=== PATIENT | male | born 1950 | race Two or more races ===

== ENCOUNTER 2024-11-18 07:02 | Inpatient (IN) | payer OTHER ==
[~2024-11-18] VITALS: Ht 172.7 cm; Wt 99.2 kg
[2024-11-18] VITALS (14 sets, daily range): BP systolic 114–124; BP diastolic 64–79; PULSE 80–100; RESP 15–20; TEMP 97.2–97.6; O2SAT 91–100
[~2024-11-18 07:02] MED LIST: ALBUAER3 IN; AMLO1TAB23 PO; CEL100T PO; COLC1CAP PO; FLUT1AER17 IN; GABA-1250 PO; METF-370 PO; METH-1182 PO; OME40GT PO; OMEG-20 PO; SIMV10TA20 PO; TAMS0.4C39 PO
[2024-11-18] MEDS ORDERED: PROPOFOL 10 MG/ML 20 ML IV ONE ×2 (08:01→10:09)
[2024-11-18] MEDS ORDERED: KETAMINE 50mg/ML 1ml syringe ONE (08:01)
[2024-11-18] MEDS ORDERED: LIDOCAINE 1% INJ PF 5ML AMP ONE (08:01)
[2024-11-18] MEDS ORDERED: GLYCOPYRROLATE 0.2 MG/ML 1ML VIAL ONE (08:01)
[2024-11-18] MEDS ORDERED: KETOROLAC TROMETH 30 MG/ML 1ML VIAL ONE ×2 (08:01→08:53)
[2024-11-18] MEDS ORDERED: ONDANSETRON HCL 4 MG/2 ML VIAL ONE (08:01)
[2024-11-18] MEDS: GABAPENTIN 300 MG CAP PO ONE (08:47)
[2024-11-18] MEDS: ACETAMINOPHEN IV 1000 MG/100ML (10MG/ML) IV ONE (08:47)
[2024-11-18] MEDS: CELECOXIB 100 MG CAP PO ONE (08:47)
[2024-11-18] MEDS ORDERED: MORPHINE SULF PF 5 MG/10 ML VIAL ONE (08:53)
[2024-11-18] MEDS: TRANEXAMIC ACID 20 ML ONE (09:00)
[2024-11-18] MEDS: CEFEPIME 1GM/50ML 50 ML IV ONE (09:00)
[2024-11-18] MEDS: ceFAZolin 2 GM/D5W50ml 50 ML IV ONE (09:00)
[2024-11-18] MEDS ORDERED: BUPIVACAINE/DEXTROSE MPF 0.75% 2 ML AMP IT ONE (09:09)
[2024-11-18] MEDS ORDERED: LIDOCAINE HCL 2% TOP JELLY 5ML TOP ONE (09:19)
[2024-11-18] MEDS: VANCOMYCIN HCL 1000 MG VL ONE (09:28)
[2024-11-18] MEDS ORDERED: LIDOCAINE 2% (LOCAL ANESTH.) PF 5ml SDV ONE (10:31)
[2024-11-18] MEDS ORDERED: ESMOLOL HCL 10 ML IV ONE (10:33)
[2024-11-18] MEDS ORDERED: ACETAMINOPHEN 325 MG TAB PO PRN (10:45)
[2024-11-18] MEDS ORDERED: ALBUTEROL SULF HFA 90MCG INH 200DOSE IN SCH (10:45)
--- NOTE | 2024-11-18 10:49 | DVHOP2 ---
Operative Report - 2 Report Details Date: 11/18/24 Preop Diagnosis: Left knee degenerative arthritis Postop Diagnosis: Left knee degenerative arthritis Surgeon: Norberto Mabry MD Industrial Automation Engineer: Yuri RIZZO Anesthesiologist: Cedrick Walsh CRNA Anesthesia: Regional Drains: Kat closed wound suction Implant: enovis knee size nine left femur PS, size nine tibial base plate, size 10 polyethylene Consent: The patient was informed of the risks and benefits of the procedure. These include but are not limited to complications of anesthesia, postoperative infection, incomplete relief of symptoms, recurrence of symptoms, damage to blood vessels, nerves and tendons, deep venous thrombosis, pulmonary embolism and possible need for repeat surgery in the future. Complications: None Estimated Blood Loss: 100 cc Fluids: See anesthesia record Findings: Varus deformity, small osteophytes, denuded cartilage with eburnated bone Indications for Surgery: Left knee degenerative arthritis with severe pain and functional impairment despite nonoperative management Name of Procedure Performed Left total knee arthroplasty Procedure Details Procedure Details: The patient was brought to the operating room and placed on the table in the supine position after being given spinal anesthetic with adequate analgesia obtained. Surgical timeout was performed verifying patient, laterality and procedure Preop patient received IV cefepime IV Ancef and IV tranexamic acid. Tourniquet was applied to the lower extremity. Lower extremity was prepped and draped in sterile fashion. Extremity was elevated, exsanguinated Esmarch, and tourniquet inflated. Midline incision was made followed by medial arthrotomy. I exposed the anterior medial and lateral tibial plateau and the anterior distal femur. Bovie and aqua mantis were used for hemostasis. I excised the anterior meniscal tissue with Bovie. I excised a portion of the fat pad with Bovie. The patella was everted and the knee flexed. I drilled the distal femur and suctioned the hole to reduce the risk of fat emboli. I inserted intramedullary guide with 5 degree valgus setting. I pinned the distal femoral cutting block anteriorly. Intramedullary vivi was removed. Distal femoral cut was made and the block removed. I brought my attention to the tibia setting up the external cutting jig for the tibia paying attention to slope, rotation and varus valgus alignment. I set the depth and pinned the block. I used the external alignment vivi to aid in checking alignment. Bone cut was made and bone removed releasing soft tissue attachments with Bovie. Cutting block removed. I then checked the extension gap and deemed adequate and removed the femur and tibia pins. I flexed the knee and applied the femoral sizing guide to the femur. I checked the size and external rotation setting at 90 degrees to [place]ites[place] line and checking the epicondylar axis. I drilled the holes then removed the sizing guide and pin. I then tapped on the 4 in 1 cutting block and checked with the emely wing anteriorly to make sure that I would not notch then pinned the block. Cuts were made and the block and pins were removed. Bone was removed with curved osteotome. I used a rongeur to remove any remaining osteophytes at the femur and tibia. I then used a lamina ophthalmic asst to open up the back alternating between the medial and lateral side. Any remaining menisca l tissue was excised with scalpel. I used curved osteotome, curette and rongeur to remove any posterior osteophytes. I prophylactically coagulated with aqua mantis. I then tapped on the template for the box cut and pinned it. Box cut was made and bone removed. Template and pin removed. I then tapped on the femoral trial. I then brought my attention back to the tibia sizing it. I used the external alignment viiv to make sure that rotation and alignment were good. I made a Bovie jocelyn at the tibial tray jocelyn identifying rotation for later use. I tried various tibial polytrials. The patella tracked nicely without thumb pressure. I removed the trials. I pinned the tray and used the reamer and keel punch. The implants were brought into the field while bone preparation was started. I used both normal saline irrigation and the CarboJet to prepare the bone. I used the bone from the cuts to graft the femoral tunnel. Once cement was ready I applied cement to the tibial implant and tibial bone tapped it on and removed excess cement in usual fashion. In similar fashion I tapped on the femoral implant. I inserted the trial polyethylene and brought the knee into 30 degrees flexion. I irrigated with bactisurge irrigant. Once cement cured, I checked stability and range of motion as well as patella tracking. tourniquet was released and hemostasis maintained with aqua mantis. I inserted the polyethylene and again checked stability. I used a 2 grams of vancomycin half of which was placed deep and half superficial. I repaired the extensor mechanism with the knee in flexion with #1 Ethibond interrupted [id number]. Deep subcutaneous tissue was closed with 0 Vicryl. Superficial subcutaneous tissue was closed with 2-0 vicryl interrupted. Skin was closed with arpan. I then applied the [kat closed wound suction]. Patient tolerated the procedure well and was brought to recovery room in stable condition. Condition Stable Disposition Still a Patient NORBERTO MABRY MD Nov 18, 2024 10:49
[2024-11-18] MEDS ORDERED: hydrALAZINE HCL 20 MG/ML VL IV PRN (11:15)
[2024-11-18] MEDS ORDERED: fentaNYL CITRATE 100 MCG/2 ML VL IV PRN (11:15)
[2024-11-18] MEDS ORDERED: FLUMAZENIL 0.1 MG/ML INJ 10ML MDV IV PRN (11:15)
[2024-11-18] MEDS ORDERED: ONDANSETRON HCL 4 MG/2 ML VIAL IV PRN (11:15)
[2024-11-18] MEDS ORDERED: NALOXONE HCL 0.4 MG/ML VIAL IV PRN (11:15)
[2024-11-18] MEDS ORDERED: HYDROmorphone HCL 2 MG/ML VL/or syr IV PRN (11:15)
[2024-11-18] MEDS: ALBUTEROL SULF 2.5 MG/0.5ML(0.5%) NEB SOLN NEB ONE (11:23)
[2024-11-18] MEDS: CELECOXIB 100 MG CAP ONE (11:25)
[2024-11-18] MEDS: BUPIVACAINE 0.25% INJ 50ML VIAL ONE (11:25)
[2024-11-18] MEDS: ACETAMINOPHEN IV 100 ML IV ONE (11:26)
[2024-11-18] MEDS: GABAPENTIN 300 MG CAP ONE (11:26)
--- NOTE | 2024-11-18 11:32 | DVH ---
CLINICAL INDICATION: Postop TECHNIQUE: 2 radiographic views of the left knee were obtained. Comparison: None FINDINGS/IMPRESSION: Postsurgical changes from left knee arthroplasty.
[2024-11-18] MEDS ORDERED: ALBUTEROL SULF 2.5 MG/0.5ML(0.5%) NEB SOLN NEB PRN (11:45)
[2024-11-18] MEDS: PANTOPRAZOLE 40 MG TAB PO SCH (11:59)
[2024-11-18] MEDS: ACETAMINOPHEN 325 MG TAB PO SCH (12:24)
[2024-11-18] MEDS: KETOROLAC TROMETH 30 MG/ML 1ML VIAL IV SCH (12:24)
[2024-11-18] MEDS ORDERED: ceFAZolin 2 GM/D5W50ml 50 ML IV SCH (14:00)
[2024-11-18] MEDS: GABAPENTIN 300 MG CAP PO SCH (14:50)
[2024-11-18] MEDS: D5W/LACTATED RINGERS 1,000 ML IV SCH (17:22)
[2024-11-18] MEDS: ceFAZolin 2 GM/D5W50ml 50 ML IV SCH (17:23)
[2024-11-19] VITALS (8 sets, daily range): BP systolic 124–131; BP diastolic 76–81; PULSE 84–98; RESP 18–20; TEMP 97.5–98.1; O2SAT 94–97
[2024-11-19 08:12] LABS: Hematocrit 41.4 % (41.0-53.0); Hemoglobin 14.6 g/dL (13.5-17.5); Mean Corpuscular Hemoglobin 30.4 pg (28.0-32.0); Mean Corpuscular Volume 86.6 fL (80.0-100.0); Nucleated Red Blood Cells % 0.0 %
[2024-11-19 08:17] LABS: Anion Gap 8 (5-15); Carbon Dioxide 25 mmol/L (20-31); Potassium 4.0 mmol/L (3.5-5.1); Sodium 141 mmol/L (136-145)
[2024-11-19 08:18] LABS: Calcium 9.6 mg/dL (8.7-10.4)
[2024-11-19 08:22] LABS: Chloride 108 mmol/L (98-107)
[2024-11-19 08:23] LABS: BUN/Creatinine Ratio 10.0 (10.0-20.0)
[2024-11-19 08:26] LABS: Blood Urea Nitrogen 8 mg/dL (9-23); Glucose 133 mg/dL (74-106)
[2024-11-19] MEDS: TAMSULOSIN HYDROCHLORIDE 0.4 MG CAP PO SCH (10:28)
--- NOTE | 2024-11-19 13:53 | DVHDS2 ---
Discharge Summary Date of Admission Nov 18, 2024 at 10:45 Date of Discharge: Nov 19, 2024 Admitting Diagnosis Left knee degenerative arthritis Wounds: Left knee Labs/Diagnostic Data: Laboratory Results Test 11/19/24 07:29 11/18/24 11:45 White Blood Count 18.1 10^3/uL (4.4-10.8) Red Blood Count 4.78 10^6/uL (4.5-5.90) Hemoglobin 14.6 g/dL (13.5-17.5) Hematocrit 41.4 % (41.0-53.0) Mean Corpuscular Volume 86.6 fL (80.0-100.0) Mean Corpuscular Hemoglobin 30.4 pg (28.0-32.0) Mean Corpuscular Hemoglobin Concent 35.2 g/dL (32.0-36.0) Red Cell Distribution Width 16.2 % (11.8-14.3) Platelet Count 207 10^3/uL (140-450) Mean Platelet Volume 8.6 fL (6.9-10.8) Neutrophils (%) (Auto) 92.3 % (37.0-80.0) Lymphocytes (%) (Auto) 4.2 % (10.0-50.0) Monocytes (%) (Auto) 3.4 % (0.0-12.0) Eosinophils (%) (Auto) 0.0 % (0.0-7.0) Basophils (%) (Auto) 0.1 % (0.0-2.0) Neutrophils # (Auto) 16.7 10 ^3/uL (1.6-8.6) Lymphocytes # (Auto) 0.8 10 ^3/uL (0.4-5.4) Monocytes # (Auto) 0.6 10 ^3/uL (0-1.3) Eosinophils # (Auto) 0 10 ^3/uL (0-0.8) Basophils # (Auto) 0 10 ^3/uL (0-0.2) Nucleated Red Blood Cells 0.0 % Sodium Level 141 mmol/L (136-145) Potassium Level 4.0 mmol/L (3.5-5.1) Chloride Level 108 mmol/L (98-107) Carbon Dioxide Level 25 mmol/L (20-31) Anion Gap 8 (5-15) Blood Urea Nitrogen 8 mg/dL (9-23) Creatinine 0.80 mg/dL (0.700-1.30) Glomerular Filtration Rate Calc 92 mL/min (>90) BUN/Creatinine Ratio 10.0 (10.0-20.0) Serum Glucose 133 mg/dL (74-106) Calcium Level 9.6 mg/dL (8.7-10.4) POC Glucose 177 mg/dl (70-106) Other Laboratory Tests 11/19/24 07:29 Brief Hx & Hospital Course: Patient was admitted after undergoing left total knee arthroplasty which was without complications. Postoperatively the patient did well with physical therapy. Pain was well-controlled with p.o. meds. Medically stable. Discharge to home as per orders. Operations or Procedures Left total knee arthroplasty Condition at Discharge: Stable Final Diagnosis/Problems List Left knee degenerative arthritis s/p total knee arthroplasty Discharge Disposition: Home SNF Discharge Will this Physician continue t: Yes Discharge Instruct/Medications Diet: Consistent carbohydrate Activity: No Restrictions, As Tolerated Activity comment: Weight-bearing as tolerated with walker Follow Up/Referral: Follow up with Dr. Mabry as scheduled Medications: [place] as prescribed for pain Aspirin for DVT prophylaxis Prescription sent to pharmacy Scheduled Albuterol Sulfate (Ventolin Mdi), 90 MCG IN PRN, (Reported) Amlodipine Besylate (Amlodipine Besylate), 1 TAB PO DAILY, (Reported) Celecoxib (CeleBREX CAPSULE), 1 CAP PO BID, (Reported) Colchicine (Colchicine), 0.6 MG PO PRN, (Reported) Ejkhryjvlva-Orlerwjakawb-Yblbq (Trelegy Ellipta 200-62.5-25 Mcg/INH), 1 AER IN QAM, (Reported) Gabapentin (Gabapentin), 1 CAP PO TID, (Reported) Metformin Hydrochloride (Metformin Hcl), 1 TAB PO AC, (Reported) Omeprazole (Prilosec Susp (For Gt)), 40 MG PO AC, (Reported) Simvastatin (Simvastatin), 1 TAB PO QPM, (Reported) Tamsulosin Hcl (Tamsulosin Hcl), 1 CAP PO DAILY, (Reported) Scheduled PRN Methocarbamol (Methocarbamol), 750 MG PO Q4HP PRN for paon, (Reported) Miscellaneous Medications Girard-3 Fatty Acids (Fish Oil), 1,000 MG PO, (Reported) Discharge Statement: "Patient was advised to return to the ER or call 911 if any headaches, dizziness, shortness of breath, chest pain, abdominal pain, bleeding, fevers, or worsening of medical condition. Patient was counseled about treatment plan, medications, possible side effects, patientverbalized understanding. All questions were answered to the best of my ability. This discharge took greater then 30 minutes in planning, reviewing documentation, counseling the patient, and discussing with other team members." ASSESSMENT ASSESSMENT Assessment Left knee degenerative arthritis s/p total knee arthroplasty NORBERTO MABRY MD Nov 19, 2024 13:52
--- NOTE | 2024-11-19 13:54 | DVHPN2 ---
Progress Note - Dictate Date Seen: Nov 19, 2024 Medical Necessity Reason Pt with a Central, PICC or Fol: No Subjective No complaints. Patient wants to go home. vital signs Vital Sign Date Time Temp Pulse Resp B/P (MAP) Pulse Ox O2 Delivery O2 Flow Rate FiO2 11/19/24 12:59 97.7 90 20 131/81 (98) 94 97.7 11/19/24 10:00 Nasal Cannula* 3 32 Total Intake and Output 11/18/24 11/18/24 11/19/24 15:00 23:00 07:00 Intake Total 220 ml 400 ml 841 ml Output Total 2200 ml 1900 ml Balance 220 ml -1800 ml -1059 ml medications Current Medications Medications Dose Ordered Sig/Noa Route Start Time Stop Time Status Last Admin Dose Admin Albuterol 90 mcg PRN IN 11/18/24 10:45 UNV Gabapentin 300 mg TID PO 11/18/24 14:00 11/19/24 06:29 300 MG Metformin HCl 500 mg AC PO 11/18/24 11:30 11/19/24 11:53 500 MG Tamsulosin HCl 0.4 mg DAILY PO 11/19/24 10:00 11/19/24 10:28 0.4 MG Pantoprazole Sodium 40 mg DAILY@0700 PO 11/18/24 11:24 11/19/24 06:30 40 MG Amlodipine Besylate 10 mg DAILY PO 11/19/24 10:00 11/19/24 10:28 10 MG Dextrose/Lactated Ringer's 1,000 ml @ 100 mls/hr Q10H IV 11/18/24 10:45 11/19/24 06:29 100 MLS/HR Acetaminophen 650 mg Q4HP PRN PO 11/18/24 10:45 Acetaminophen 650 mg Q6HR PO 11/18/24 12:00 11/19/24 11:54 650 MG Ketorolac Tromethamine 15 mg Q6HR IV 11/18/24 12:00 11/23/24 11:59 11/19/24 11:54 15 MG Oxycodone HCl 5 mg Q4HP PRN PO 11/18/24 10:45 Oxycodone HCl 10 mg Q4HP PRN PO 11/18/24 10:45 11/18/24 14:51 10 MG Aspirin 81 mg BID PO 11/19/24 10:00 11/19/24 10:28 81 MG Oxycodone HCl 10 mg ONCE PRN PO 11/18/24 11:15 Albuterol 2.5 mg Q4HPRN PRN NEB 11/18/24 11:45 objective Alert and oriented x4 Left knee wound dry and intact No calf tenderness or swelling Distally neurovascularly intact laboratory and microbiology Laboratory Tests 11/19/24 07:29 Test 11/19/24 07:29 Range/Units Serum Glucose 133 H 74-106 mg/dL Assessment/Plan Postop day 1. s/p left total knee arthroplasty Plan: Discharge to home as ordered Plan discussed with: Patient, Spouse NORBERTO MABRY MD Nov 19, 2024 13:54
== END 2024-11-19 15:06 | disposition home or self-care (01) | DRG 470 ==
LOC: SUR 07:02 → OVERFLOW 10:45 → WEST WING 12:53
PROVIDERS: ADMIT Orthopaedic Surgery; ATTEND Orthopaedic Surgery
PROC: 0SRD0J9 Replacement of Left Knee Joint with Synthetic Substitute, Cemented, Open Approach (ICD-10-PCS; principal; 2024-11-18 09:00)
DX: M17.12 Unilateral primary osteoarthritis, left knee (principal)
CPT/HCPCS: 36415; 73562; 80048; 82962; 85025; 86850; 86900; 86901; 94640; 97110; 97116; 97163; G0378; J0131; J0169; J1100; J1885; J2003; J2405; J2704; J3490